=== PATIENT | male | born 2000 | race Caucasian/White ===

== ENCOUNTER 2024-06-02 19:55 | Emergency (ER) | payer SELFPAY ==
--- NOTE | 2024-06-02 20:13 | ED ---
General Adult HPI - General Source: patient, RN notes reviewed Mode of arrival: ambulatory Limitations: altered mental status <Mervat Martin - Last Filed: 06/02/24 21:22> <Isaiah Ortiz - Last Filed: 06/02/24 22:17> - General Chief complaint: Chest Pain Stated complaint: AMS, SOB Time Seen by Provider: 06/02/24 20:09 - History of Present Illness Initial comments: This is a 23-year-old male presenting to the emergency department chief complaint of a fall and subsequent headache and chest pain with shortness of breath. Patient was playing hockey when he was in the frontal chest causing him to fall onto the ice and hit his head. Patient denies loss consciousness at the time of the injury. Currently states that he was having substernal chest pain that is exacerbated with palpation and on inspiration. He is complaining of a headache and neck pain as well. He is denying blurry or double vision, parast hesias, or heart palpitations. Denies other injuries at the time of the fall. Denies blood thinner use. (Mervat Martin) - Related Data Allergies Allergy/AdvReac Type Severity Reaction Status Date / Time Iodinated Contrast Media Allergy Swelling Verified 06/02/24 22:13 amoxicillin AdvReac Anaphylaxis Verified 06/02/24 19:56 Review of Systems ROS Other: All systems not noted in ROS Statement are negative. <Mervat Martin - Last Filed: 06/02/24 21:22> ROS Other: All systems not noted in ROS Statement are negative. <Isaiah Ortiz - Last Filed: 06/02/24 22:17> ROS Statement: Those systems with pertinent positive or pertinent negative responses have been documented in the HPI. Past Medical History Past Medical History: No Reported History History of Any Multi-Drug Resistant Organisms: None Reported Past Surgical History: No Surgical Hx Reported Past Psychological History: No Psychological Hx Reported Smoking Status: Current every day smoker Past Alcohol Use History: Occasional Past Drug Use History: Marijuana <Mervat Martin - Last Filed: 06/02/24 21:22> General Exam Limitations: altered mental status General appearance: alert, in no apparent distress, in distress Head exam: Present: atraumatic, normocephalic, normal inspection Eye exam: Present: normal appearance, PERRL, EOMI, periorbital swelling. Absent: scleral icterus, conjunctival injection ENT exam: Present: normal exam, mucous membranes moist Neck exam: Present: normal inspection, tenderness. Absent: meningismus, full ROM, lymphadenopathy Respiratory exam: Present: normal lung sounds bilaterally, respiratory distress, chest wall tenderness (anterior). Absent: wheezes, rales, rhonchi, stridor Cardiovascular Exam: Present: regular rate, normal rhythm, tachycardia, normal heart sounds. Absent: systolic murmur, diastolic murmur, rubs, gallop, clicks GI/Abdominal exam: Present: soft, normal bowel sounds. Absent: distended, tenderness, guarding, rebound, rigid Extremities exam: Present: normal inspection, full ROM, normal capillary refill. Absent: tenderness, pedal edema, joint swelling, calf tenderness Back exam: Present: normal inspection Neurological exam: Present: alert, oriented X3, CN II-XII intact <Mervat Martin - Last Filed: 06/02/24 21:22> Course <Isaiah Ortiz - Last Filed: 06/02/24 22:17> Vital Signs 06/02/24 06/02/24 06/02/24 19:56 20:15 20:30 Temperature 99.1 F Pulse Rate 87 74 74 Respiratory 19 18 18 Rate Blood Pressure 124/80 125/82 128/88 O2 Sat by Pulse 97 94 L 97 Oximetry 06/02/24 06/02/24 06/02/24 21:00 21:15 21:40 Temperature Pulse Rate 78 64 62 Respiratory Rate Blood Pressure 137/87 123/80 134/88 O2 Sat by Pulse 100 100 100 Oximetry - Reevaluation(s) Reevaluation #1: 06/02/24 21:12 Case discussed with cardiothoracic surgery who recommends that if we would like to diagnose a esophageal perforation that we should do an esophagram. I do not know if we have the capabilities to perform this p diagnostic imaging. I did speak with the radiology states that unclear etiology of pneumomediastinum and pneumothorax. There is a questionable first rib fracture but no obvious fracture. (Isaiah Ortiz) Reevaluation #2: 06/02/24 21:32 Case was discussed with general surgery, Dr. Hendrickson request that we perform an esophagram. Spoke with Dr. Wilkerson that we have the capabilities of doing this image emergently. Pending results likely patient will need transfer regardless. (Isaiah Ortiz) Reevaluation #3: 06/02/24 22:10 Esophagram was performed showing no evidence of esophageal perforation. I did speak with Dr. Hendrickson states that patient is appropriate for admission here in our facility with consultation pulmonology. Case also discussed with on-call cardiothoracic, Dr. Moon states that he is also in agreement that patient is appropriate for admission at our facility. States that patient should get scheduled chest x-rays for monitoring of bilateral trace pneumothoraces. Did not feel that patient required any chest tubes at this time. (Isaiah Ortiz) Reevaluation #4: 06/02/24 22:[address] Dye who does not feel patient needs ICU admission. Patient mated to the floor with acute 4-hour x-rays (Isaiah Ortiz) Medical Decision Making <Mervat Martin - Last Filed: 06/02/24 21:22> - Lab Data Result diagrams: 06/02/24 21:07 06/02/24 21:07 <Isaaih Ortiz - Last Filed: 06/02/24 22:17> - Medical Decision Making Was pt. sent in by a medical professional or institution ([facility], RISK INVESTIGATOR, urgent care, hospital, or penitentiary...) When possible be specific @ -[No] Did you speak to anyone other than the patient for history (EMS, parent, family, police, friend...)? What history was obtained from this source @ -[No] Did you review nursing and triage notes (agree or disagree)? Why? @ -[I reviewed and agree with nursing and triage notes] Were old charts reviewed (outside hosp., previous admission, EMS record, old EKG, old radiological studies, urgent care reports/EKG's, penitentiary records)? Report findings @ -[No old charts were reviewed] Differential Diagnosis (chest pain, altered mental status, abdominal pain women, abdominal pain men, vaginal bleeding, weakness, fever, dyspnea, syncope, headache, dizziness, GI bleed, back pain, seizure, CVA, palpatations, mental health, musculoskeletal)? @ -[not applicable] EKG interpreted by me (3pts min.). @ -completed at 2011 sinus rhythm with a ventricular rate of 75, CA interval 155, QRS 106, QTc 408. X-rays interpreted by me (1pt min.). @ -[None done] CT interpreted by me (1pt min.). @ -[None done] U/S interpreted by me (1pt. min.). @ -[None done] What testing was considered but not performed or refused? (CT, X-rays, U/S, labs)? Why? @ -[None] What meds were considered but not given or refused? Why? @ -[None] Did you discuss the management of the patient with other professionals (professionals i.e. , PA, RISK INVESTIGATOR, lab, RT, psych nurse, social work faculty member, family lawyer, teacher, border patrol officer, bottle caser)? Give summary @ -[No] Was smoking cessation discussed for >3mins.? @ -[No] Was critical care preformed (if so, how long)? @ -[No] Were there social determinants of health that impacted care today? How? (Homelessness, low income, unemployed, alcoholism, drug addiction, transportation, low edu. Level, literacy, decrease access to med. care, fdc, rehab)? @ -[No] Was there de-escalation of care discussed even if they declined (Discuss DNR or withdrawal of care, Hospice)? DNR status @ -[No] What co-morbidities impacted this encounter? (DM, HTN, Smoking, COPD, CAD, Cancer, CVA, ARF, Chemo, Hep., AIDS, mental health diagnosis, sleep apnea, morb id obesity)? @ -[None] Was patient admitted / discharged? Hospital course, mention meds given and ro [place], prescriptions, significant lab abnormalities, going to OR and other pertinent info. @ -[hospital course] Undiagnosed new problem with uncertain prognosis? @ -[No] Drug Therapy requiring intensive monitoring for toxicity (Heparin, Nitro, Insulin, Cardizem)? @ -[No] Were any procedures done? @ -[No] Diagnosis/symptom? @ -[default] Acute, or Chronic, or Acute on Chronic? @ -[default] Uncomplicated (without systemic symptoms) or Complicated (systemic symptoms)? @ -[default] Side effects of treatment? @ -[No] Exacerbation, Progression, or Severe Exacerbation? @ -[No] Poses a threat to life or bodily function? How? (Chest pain, USA, MD, pneumonia, PE, COPD, DKA, ARF, appy, cholecystitis, CVA, Diverticulitis, Homicidal, Suicidal, threat to staff... and all critical care pts) @ -[No] (Mervat Martin) SUPERVISORY NOTE: I have reviewed all documentation, results, and performed the MDM in its entirety, which constitutes a substantive portion of the visit. Patient also seen evaluated and treated at the bedside. Critical portions of patient care were managed by myself (Isaiah Ortiz) - Lab Data Lab Results 06/02/24 06/02/24 06/02/24 Range/Units 21:07 21:07 21:07 WBC 7.7 (3.8-10.6) k/uL RBC 4.78 (4.30-5.90) m/uL Hgb 14.8 (13.0-17.5) gm/dL Hct 43.9 (39.0-53.0) % MCV 91.9 (80.0-100.0) fL MCH 31.0 (25.0-35.0) pg MCHC 33.7 (31.0-37.0) g/dL RDW 12.6 (11.5-15.5) % Plt Count 137 L (150-450) k/uL MPV 10.0 Neutrophils % 85 % Lymphocytes % 9 % Monocytes % 4 % Eosinophils % 0 % Basophils % 0 % Neutrophils # 6.6 (1.3-7.7) k/uL Lymphocytes # 0.7 L (1.0-4.8) k/uL Monocytes # 0.3 (0-1.0) k/uL Eosinophils # 0.0 (0-0.7) k/uL Basophils # 0.0 (0-0.2) k/uL PT 11.0 (10.0-12.5) sec INR 1.0 (<1.2) APTT 23.0 (22.0-30.0) sec Sodium 132 L (137-145) mmol/L Potassium 5.0 (3.5-5.1) mmol/L Chloride 102 (98-107) mmol/L Carbon Dioxide 27 (22-30) mmol/L Anion Gap 3 mmol/L BUN 20 (9-20) mg/dL Creatinine 1.14 (0.66-1.25) mg/dL Est GFR (CKD-EPI)AfAm >90 (>60 ml/min/1.73 sqM) Est GFR (CKD-EPI)NonAf 89 (>60 ml/min/1.73 sqM) Glucose 144 H (74-99) mg/dL Calcium 9.1 (8.4-10.2) mg/dL Disposition <Mervat Martin - Last Filed: 06/02/24 21:22> Decision Time: 22:17 <Isaiah Ortiz - Last Filed: 06/02/24 22:17> Clinical Impression: Pneumomediastinum Disposition: ADMITTED IP TO THIS HOSP Condition: Serious Referrals: None,Stated [Primary Care Provider] - 1-2 days
[2024-06-02] MEDS: MORPHINE SULFATE 4 MG/ML SYRINGE IVP STA (20:25)
[2024-06-02] MEDS ORDERED: VANCOMYCIN IV PER PHARMACY 1 EACH MISC MISCELLANE PRN (20:56)
[2024-06-02] MEDS: FAMOTIDINE 20 MG/2 ML VIAL IV STA (20:58)
[2024-06-02] MEDS: methylPREDNISolone SOD SUCCI 125 MG/2 ML VIAL IV STA (20:59)
[2024-06-02] MEDS: diphenhydrAMINE 50 MG/ML 1 ML VIAL IVP STA (20:59)
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
[2024-06-02] MEDS: SODIUM CHLORIDE 0.9% 1,000 ML IV STA (21:10)
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
[2024-06-02 21:29] LABS: Basophils % (A) 0 %; Eosinophils % (A) 0 %; HCT 43.9 % (39.0-53.0); HGB 14.8 gm/dL (13.0-17.5); Lymphocytes # (A) 0.7 k/uL (1.0-4.8); Lymphocytes % (A) 9 %; MCHC 33.7 g/dL (31.0-37.0); MCV 91.9 fL (80.0-100.0); Monocytes # (A) 0.3 k/uL (0-1.0); Monocytes % (A) 4 %; Neutrophils # (A) 6.6 k/uL (1.3-7.7); Neutrophils % (A) 85 %; Platelet Count 137 k/uL (150-450); RBC 4.78 m/uL (4.30-5.90); RDW 12.6 % (11.5-15.5); WBC 7.7 k/uL (3.8-10.6)
[2024-06-02 21:41] LABS: African American GFR (CKD) >90 (>60 ml/min/1.73 sqM); Anion Gap 3 mmol/L; Blood Urea Nitrogen 20 mg/dL (9-20); Calcium 9.1 mg/dL (8.4-10.2); Carbon Dioxide 27 mmol/L (22-30); Chloride 102 mmol/L (98-107); Glucose 144 mg/dL (74-99); Non-African American GFR(CKD) 89 (>60 ml/min/1.73 sqM); Sodium 132 mmol/L (137-145)
[2024-06-02] MEDS ORDERED: ACETAMINOPHEN TAB 325 MG TAB PO PRN (22:14)
[2024-06-02] MEDS ORDERED: NALOXONE 0.4 MG/ML 1 ML VIAL IV PRN (22:14)
[2024-06-02] MEDS ORDERED: ONDANSETRON 4 MG/2 ML VIAL IVP PRN (22:14)
[2024-06-02] MEDS: VANCOMYCIN 1,500 MG in SODIUM CHLORIDE 0.9% 500 ML 500 ML IVPB STA (23:08)
[2024-06-02] MEDS: LEVOFLOXACIN 750MG-D5W PMX 750 MG in DEXTROSE/WATER 1 150ML.BAG IVPB STA (23:09)
[2024-06-02] MEDS: SODIUM CHLORIDE 0.9% 1,000 ML IV SCH (23:09)
[2024-06-02] MEDS: MORPHINE SULFATE 4 MG/ML SYRINGE IV PRN (23:30)
[2024-06-03] MEDS: diphenhydrAMINE 50 MG/ML 1 ML VIAL IVP STA (01:52)
[2024-06-03] MEDS: methylPREDNISolone SOD SUCCI 125 MG/2 ML VIAL IV STA (01:52)
[2024-06-03] MEDS: FAMOTIDINE 20 MG/2 ML VIAL IV STA (01:52)
--- NOTE | 2024-06-03 03:28 | XR ---
EXAM: XR Chest, 1 View CLINICAL HISTORY: ptx TECHNIQUE: Frontal view of the chest. COMPARISON: CT chest from yesterday. FINDINGS: Lungs: Unremarkable. No consolidation. Pleural space: Large left pneumothorax with a more than 50% loss in volume, increased. Small to moderate right pneumothorax with 20-30% loss in volume, increased. Mediastinum: Pneumomediastinum extending to bilateral neck, similar. Bones/joints: No acute findings. Soft tissues: Large amount of gas surrounding bilateral chest wall and neck, increased. IMPRESSION: 1. Large left pneumothorax with a more than 50% loss in volume, increased. 2. Small to moderate right pneumothorax with 20-30% loss in volume, increased. 3. Pneumomediastinum extending to bilateral neck, similar. 4. Large amount of gas surrounding bilateral chest wall and neck, increased. <MYCVCSECTION> Communications: 06/03/24 03:36 Verify Receipt Verified receipt with ER Nurse Dr. Pickard on 06/03 03:36 (-05:00)
[2024-06-03] MEDS: HYDROmorphone 1 MG/ML 1 ML SYRINGE IVP STA ×2 (04:28→05:10)
[2024-06-03] MEDS: LIDOCAINE 1% INJ 10MG/ML (10 ML MDV) SQ STA (04:29)
--- NOTE | 2024-06-03 05:17 | XR ---
EXAM: XR Chest, 1 View CLINICAL HISTORY: ITS.REASON XR Reason: confirm thoravent placement TECHNIQUE: Frontal view of the chest. COMPARISON: Earlier same day. FINDINGS: Lungs: Unremarkable. No consolidation. Pleural space: Moderate bilateral pneumothoraces. Heart: Unremarkable. No cardiomegaly. Mediastinum: Unremarkable. Normal mediastinal contour. Bones/joints: Unremarkable. No acute fracture. Soft tissues: Subcutaneous air overlying the chest. IMPRESSION: Moderate bilateral pneumothoraces, unchanged.
[2024-06-03 05:25] VITALS: BP 134/86; PULSE 73; RESP 12; TEMP 98.3
--- NOTE | 2024-06-03 05:27 | XR ---
EXAM: XR Chest, 1 View CLINICAL HISTORY: ITS.REASON XR Reason: confirm thoravent placement TECHNIQUE: Frontal view of the chest. COMPARISON: Earlier same day. FINDINGS: Lungs: Unremarkable. No consolidation. Pleural space: Mild-moderate bilateral pneumothoraces, which are similar when compared to prior exam. LEFT chest tube. Heart: Unremarkable. No cardiomegaly. Mediastinum: Unremarkable. Normal mediastinal contour. Bones/joints: Unremarkable. No acute fracture. IMPRESSION: Mild-moderate bilateral pneumothoraces, which are similar when compared to prior exam. LEFT chest tube.
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
[2024-06-03] MEDS ORDERED: VANCOMYCIN 1,500 MG in SODIUM CHLORIDE 0.9% 500 ML 500 ML IVPB SCH (11:00)
== END 2024-06-03 05:28 | disposition other institution (70) ==
LOC: EC 19:55 → 3SCARD 22:14 → UNDOADMIN 22:14 → EC 06-03 05:28
DX: J98.2 Interstitial emphysema (principal); F17.200 Nicotine dependence, unspecified, uncomplicated; Z88.0 Allergy status to penicillin; Z91.041 Radiographic dye allergy status
CPT/HCPCS: 99285; 96365; 96366 ×2; 96375 ×2; 96368; 96361; 96376; 36415; 93005; 80048; 85025; 85610; 85730; 74220; 71045; 72125; 70491; 70450; 71250; 71260; J3370; J2270 ×2; J1200 ×2; J3490 ×2; J1171; J1956; Q9967 ×2; J2919 ×2; J2003